=== PATIENT | male | born 1990 | race Caucasian/White ===

== ENCOUNTER 2024-01-17 20:38 | Emergency (ER) | payer MEDICAID ==
[~2024-01-17 20:38] MED LIST: LOSA-382 PO; SERT-158 PO; SERT-439 PO
== END 2024-01-17 21:20 | disposition left against medical advice (07) ==
LOC: EMS 20:38
DX: Z53.21 Procedure and treatment not carried out due to patient leaving prior to being seen by health care provider (principal)

== ENCOUNTER 2024-01-17 21:56 | Emergency (ER) | payer MEDICAID ==
[~2024-01-17] VITALS: Ht 170.2 cm; Wt 65.9 kg
[2024-01-17 22:08] VITALS: BP 135/86; PULSE 84; RESP 18; TEMP 98.6
== END 2024-01-17 22:44 | disposition left against medical advice (07) ==
LOC: EMS 21:56
DX: R45.851 Suicidal ideations (principal); Z53.21 Procedure and treatment not carried out due to patient leaving prior to being seen by health care provider

== ENCOUNTER 2024-01-18 00:33 | Inpatient (IN) | payer MEDICAID ==
[~2024-01-18] VITALS: Ht 172.7 cm; Wt 72.6 kg
[2024-01-18] MEDS ORDERED: ZOLPIDEM TARTRATE 10 MG TABLET PO PRN (03:00)
[2024-01-18] MEDS ORDERED: OLANZapine 5 MG RAPDIS TABLET PO PRN (03:00)
[2024-01-18] MEDS ORDERED: PNEUMOCOCCAL VACCINE POLYVALENT 0.5 ML SYRINGE [PPSV23] IM. ONE (05:15)
[2024-01-18] MEDS ORDERED: LOPERAMIDE HCL 2 MG CAPSULE PO PRN (08:00)
[2024-01-18] MEDS ORDERED: NICOTINE 14 MG/24 HOUR PATCH TD PRN (08:00)
[2024-01-18] MEDS ORDERED: GuaiFENesin/D-METHORPHAN [SUGAR-FREE] 200-20MG/10 ML SYRUP UDCUP PO PRN (08:00)
[2024-01-18] MEDS ORDERED: IBUPROFEN 400 MG TABLET PO PRN (08:00)
[2024-01-18] MEDS ORDERED: MAG HYDROX/ALUMINUM HYD/SIMETH ES 30 ML SUSPENSION UDCUP PO PRN (08:00)
[2024-01-18] MEDS ORDERED: DOCUSATE SODIUM 100 MG CAPSULE PO PRN (08:00)
[2024-01-18] MEDS ORDERED: ONDANSETRON HCL 4 MG TABLET PO PRN (08:00)
[2024-01-18] MEDS ORDERED: MAGNESIUM HYDROXIDE SUSPENSION 30 ML UDCUP PO PRN (08:00)
[2024-01-18] MEDS ORDERED: PETROLATUM,WHITE 28 GM JELLY TP PRN (08:00)
[2024-01-18] MEDS ORDERED: CloNIDine HCL 0.1 MG TABLET PO PRN (08:00)
[2024-01-18] MEDS ORDERED: ALBUTEROL SULFATE HFA 90 MCG/PUFF 8 GM INHALER IH PRN (08:00)
[2024-01-18] MEDS: LOSARTAN POTASSIUM 50 MG TABLET PO SCH (09:00)
[2024-01-18 14:54] VITALS: BP 129/78; PULSE 65; RESP 16; TEMP 98.6; O2SAT 96
[2024-01-18 20:13] VITALS: BP 134/72; PULSE 61; RESP 16; TEMP 97.3; O2SAT 97
[2024-01-19 08:11] VITALS: BP 122/81; PULSE 70; RESP 20; TEMP 98; O2SAT 99
[2024-01-19] MEDS: SERTRALINE HCL 50 MG TABLET PO SCH (09:22)
[2024-01-19 09:41] VITALS: BP 143/92
[2024-01-19 18:13] VITALS: BP 159/91; PULSE 72; RESP 20; O2SAT 97
[2024-01-19] MEDS: ACETAMINOPHEN 325 MG TABLET PO PRN (18:13)
[2024-01-19 19:13] VITALS: RESP 19; O2SAT 97
[2024-01-19 23:05] VITALS: BP 132/84; PULSE 78; RESP 18; TEMP 97.8
[2024-01-20 08:17] LABS: BASOPHILS % (AUTO) 0.5 % (0.0-2.0); EOSINOPHILS % (AUTO) 2.9 % (1.0-6.0); HEMATOCRIT 41.9 % (41-53); HEMOGLOBIN 14.3 g/dL (13.5-17.5); LYMPHOCYTES # (AUTO) 2.5 K/uL (1.0-4.8); LYMPHOCYTES % (AUTO) 39.4 % (22.0-44.0); MEAN CORPUSCULAR HEMOGLOBIN 32.3 pg (26.0-34.0); MEAN CORPUSCULAR HGB CONC 34.1 G/dL (31.0-37.0); MEAN CORPUSCULAR VOLUME 95 fL (80-100); MONOCYTES # (AUTO) 0.6 K/uL (0.1-1.0); NEUTROPHILS # (AUTO) 2.9 K/uL (1.8-7.7); NEUTROPHILS % (AUTO) 47.2 % (40.0-70.0); PLATELET COUNT (AUTO) 183 K/uL (150-450); RED BLOOD CELL COUNT(AUTO) 4.42 MIL/uL (4.50-5.90); RED CELL DISTRIBUTION WIDTH 12.7 % (11.5-14.5); WHITE BLOOD COUNT (AUTO) 6.3 K/uL (4.5-11.0)
[2024-01-20 08:19] LABS: APPEARANCE,URINE TURBID (CLEAR); BILIRUBIN,URINE NEGATIVE (NEGATIVE); COLOR,URINE LIGHT ORANGE (YELLOW); GLUCOSE, URINE (UA) NEGATIVE (NEGATIVE); KETONES,URINE NEGATIVE (NEGATIVE); LEUKOCYTE ESTERASE ,URINE NEGATIVE (NEGATIVE); NITRATE,URINE NEGATIVE (NEGATIVE); OCCULT BLOOD,URINE NEGATIVE (NEGATIVE); PH,URINE 5.5 (5.0-8.0); PH,URINE DRUG SCREEN 5.5 (5.0-8.0); PROTEIN,URINE NEGATIVE (NEGATIVE); SPECIFIC GRAVITIY, URINE 1.025 (1.003-1.030); UROBILINOGEN,URINE <=1.0 mg/dL (<=1.0)
[2024-01-20 08:22] LABS: HEMOGLOBIN A1C 5.1 % (3.8-5.6)
[2024-01-20 08:23] VITALS: BP 142/62; PULSE 56; RESP 18; TEMP 97.5; O2SAT 100
[2024-01-20 08:36] LABS: ALANINE AMINOTRANSFERASE 15 U/L (12-78); ALBUMIN 3.3 g/dL (3.4-5.0); ALKALINE PHOSPHATASE 51 U/L (46-116); ANION GAP 7 mmol/L (8-16); ASPARTATE AMINOTRANSFERASE 14 U/L (15-37); BILIRUBIN,TOTAL 0.7 mg/dL (0.1-1.0); CALCIUM, TOTAL 8.7 mg/dL (8.8-10.5); CARBON DIOXIDE 29 mmol/L (22-29); CHLORIDE 102 mmol/L (98-107); CHOLESTEROL 146 mg/dL (131-200); CREATININE 0.88 mg/dL (0.60-1.30); FREE T4 (FREE THYROXINE) 0.98 ng/dL (0.76-1.46); GLOMERULAR FILTR. RATE CALC > 60 mL/min (>60); GLUCOSE,RANDOM 74 mg/dL (70-110); HDL CHOLESTEROL 49 mg/dL (40-60); LDL CHOL (CALC.) 92 mg/dL (0-130); POTASSIUM 3.6 mmol/L (3.5-5.1); SODIUM SERUM 138 mmol/L (136-145); THYROID STIMULATING HORMONE 0.88 uIU/mL (0.36-3.74); TRIGLYCERIDES 26 mg/dL (15-150); UREA NITROGEN, BLOOD 11 mg/dL (7-18)
[2024-01-20 08:36] LABS: ALCOHOL, URINE DRUG SCREEN NEGATIVE (NEGATIVE); AMPHET/METH SCREEN,URINE NEGATIVE (NEGATIVE); BARBITURATE SCREEN, URINE NEGATIVE (NEGATIVE); BENZODIAZEPINES SCREEN,URINE NEGATIVE (NEGATIVE); CANNABINOID SCREEN,URINE NEGATIVE (NEGATIVE); COCAINE SCREEN,URINE NEGATIVE (NEGATIVE); METHADONE SCREEN, URINE NEGATIVE (NEGATIVE); OPIATE SCREEN,URINE NEGATIVE (NEGATIVE); PHENCYCLIDINE SCREEN,URINE NEGATIVE (NEGATIVE)
[2024-01-20 20:23] VITALS: BP 114/59; PULSE 61; RESP 17; TEMP 97.9; O2SAT 100
[2024-01-21 08:15] VITALS: BP 104/62; PULSE 64; RESP 17; TEMP 97.5; O2SAT 98
[2024-01-21 20:32] VITALS: BP 109/57; PULSE 60; RESP 16; TEMP 97.9; O2SAT 97
[2024-01-21] MEDS: ChlorproMAZINE HCL 50 MG/2 ML AMP IM ONE (21:30)
[2024-01-21] MEDS: DiphenhydrAMINE HCL 50 MG/ML VIAL IM ONE (21:30)
[2024-01-21] MEDS ORDERED: ChlorproMAZINE HCL 50 MG/2 ML AMP ONE (21:31)
[2024-01-22 08:45] VITALS: RESP 17
[2024-01-22 09:14] LABS: TROPONIN I-HIGH SENSITIVITY 33 ng/L (<76)
[2024-01-22 20:26] VITALS: BP 129/80; PULSE 77; RESP 18; TEMP 97.8; O2SAT 97
[2024-01-23 08:26] VITALS: BP 114/66; PULSE 61; RESP 17; TEMP 97.7; O2SAT 100
== END 2024-01-23 15:29 | disposition home or self-care (01) | DRG 751 ==
LOC: B3A 02:38 → B2S 12:40 → B3A 01-19 19:00
PROVIDERS: ADMIT Psychiatry & Neurology Psychiatry; ATTEND Psychiatry & Neurology Psychiatry
PROC: GZHZZZZ Group Psychotherapy (ICD-10-PCS; principal; 2024-01-19)
DX: F33.2 Major depressive disorder, recurrent severe without psychotic features (principal); R45.851 Suicidal ideations; G47.00 Insomnia, unspecified; G89.4 Chronic pain syndrome; I10 Essential (primary) hypertension; Z79.899 Other long term (current) drug therapy; Z59.00 Homelessness unspecified; Z91.018 Allergy to other foods
CPT/HCPCS: 80053; 80061; 80307; 81003; 83036; 84439; 84443; 84484; 85025; 87081; J1200; J3230

== ENCOUNTER 2024-01-18 03:19 | Emergency (ER) | payer MEDICAID ==
[~2024-01-18] VITALS: Ht 177.8 cm; Wt 81.0 kg
[2024-01-18 03:53] LABS: BASOPHILS % (AUTO) 0.5 % (0.0-2.0); EOSINOPHILS % (AUTO) 1.5 % (1.0-6.0); HEMATOCRIT 42.7 % (41-53); HEMOGLOBIN 14.5 g/dL (13.5-17.5); LYMPHOCYTES # (AUTO) 3.1 K/uL (1.0-4.8); LYMPHOCYTES % (AUTO) 38.8 % (22.0-44.0); MEAN CORPUSCULAR HEMOGLOBIN 32.1 pg (26.0-34.0); MEAN CORPUSCULAR VOLUME 94 fL (80-100); MONOCYTES # (AUTO) 0.8 K/uL (0.1-1.0); MONOCYTES % (AUTO) 10.4 % (2.0-9.0); NEUTROPHILS # (AUTO) 3.9 K/uL (1.8-7.7); NEUTROPHILS % (AUTO) 48.8 % (40.0-70.0); PLATELET COUNT (AUTO) 193 K/uL (150-450); RED BLOOD CELL COUNT(AUTO) 4.53 MIL/uL (4.50-5.90); RED CELL DISTRIBUTION WIDTH 12.8 % (11.5-14.5)
[2024-01-18 04:01] LABS: ANION GAP 3 mmol/L (8-16); CALCIUM, TOTAL 8.6 mg/dL (8.8-10.5); CARBON DIOXIDE 33 mmol/L (22-29); CHLORIDE 103 mmol/L (98-107); CREATININE 0.99 mg/dL (0.60-1.30); GLOMERULAR FILTR. RATE CALC > 60 mL/min (>60); GLUCOSE,RANDOM 98 mg/dL (70-110); POTASSIUM 3.8 mmol/L (3.5-5.1); SODIUM SERUM 139 mmol/L (136-145); UREA NITROGEN, BLOOD 16 mg/dL (7-18)
[2024-01-18 04:06] LABS: ALCOHOL, BLOOD (SERUM) < 3 mg/dL (0-10)
[2024-01-18] MEDS: BACITRACIN 0.9 GM PACKET OINTMENT TP ONE (04:30)
[2024-01-18] MEDS: PERTUSS(ACELL),DIPH,TET/PF 0.5 ML SYRINGE [ADULT] IM. ONE (04:31)
[2024-01-18 04:38] LABS: COVID AG,FIA SOURCE NASAL SWAB
[2024-01-18 04:49] LABS: SARS-COV2 (COVID) ANTIGEN,FIA Negative (Negative)
[2024-01-18 09:00] VITALS: BP 122/79; PULSE 77; RESP 18; TEMP 98.4
== END 2024-01-18 10:52 | disposition home or self-care (01) ==
LOC: EMS 03:27
DX: F32.9 Major depressive disorder, single episode, unspecified (principal); Z88.8 Allergy status to other drugs, medicaments and biological substances; Z20.822 Contact with and (suspected) exposure to COVID-19
CPT/HCPCS: 99285; 87426; 80048; 85025; 36415; 90715; 90471; G0480

== ENCOUNTER 2024-05-27 17:08 | Emergency (ER) | payer MEDICAID, OTHER ==
[~2024-05-27] VITALS: Ht 172.7 cm; Wt 72.7 kg
[~2024-05-27 17:08] MED LIST changes: -SERT-439 PO
[2024-05-27 17:22] VITALS: TEMP 98.5
[2024-05-27] MEDS ORDERED: LISI10TA24 PO (17:42)
[2024-05-27] MEDS: ONDANSETRON HCL 4 MG/2 ML VIAL IVP ONE (18:04)
[2024-05-27] MEDS: SODIUM CHLORIDE 0.9% 1,000 ML IV ONE (18:04)
[2024-05-27 18:14] LABS: COVID AG,FIA SOURCE NASAL SWAB
[2024-05-27 18:28] LABS: ANION GAP 7 mmol/L (8-16); CALCIUM, TOTAL 7.7 mg/dL (8.8-10.5); CARBON DIOXIDE 29 mmol/L (22-29); CHLORIDE 101 mmol/L (98-107); CREATININE 0.94 mg/dL (0.60-1.30); GLOMERULAR FILTR. RATE CALC > 60 mL/min (>60); GLUCOSE,RANDOM 84 mg/dL (70-110); POTASSIUM 3.7 mmol/L (3.5-5.1); SODIUM SERUM 137 mmol/L (136-145); UREA NITROGEN, BLOOD 12 mg/dL (7-18)
[2024-05-27 18:33] LABS: ALANINE AMINOTRANSFERASE 19 U/L (12-78); ALBUMIN 3.1 g/dL (3.4-5.0); ALKALINE PHOSPHATASE 44 U/L (46-116); ASPARTATE AMINOTRANSFERASE 25 U/L (15-37); BILIRUBIN,TOTAL 0.4 mg/dL (0.1-1.0); LIPASE 64 U/L (16-77); TOTAL PROTEIN, SERUM 6.4 g/dL (6.4-8.2)
[2024-05-27 18:35] LABS: INFLUENZA TYPE B NEGATIVE FOR TYPE B (NEGATIVE); SARS-COV2 (COVID) ANTIGEN,FIA Negative (Negative)
[2024-05-27 18:36] LABS: BASOPHILS % (AUTO) 0.4 % (0.0-2.0); EOSINOPHILS % (AUTO) 0 % (1.0-6.0); HEMATOCRIT 38.2 % (41-53); HEMOGLOBIN 13.3 g/dL (13.5-17.5); LYMPHOCYTES # (AUTO) 0.9 K/uL (1.0-4.8); LYMPHOCYTES % (AUTO) 18.8 % (22.0-44.0); MEAN CORPUSCULAR HEMOGLOBIN 32.1 pg (26.0-34.0); MEAN CORPUSCULAR HGB CONC 34.7 G/dL (31.0-37.0); MEAN CORPUSCULAR VOLUME 92 fL (80-100); MONOCYTES # (AUTO) 0.4 K/uL (0.1-1.0); MONOCYTES % (AUTO) 9.8 % (2.0-9.0); NEUTROPHILS # (AUTO) 3.2 K/uL (1.8-7.7); PLATELET COUNT (AUTO) 155 K/uL (150-450); RED BLOOD CELL COUNT(AUTO) 4.14 MIL/uL (4.50-5.90); RED CELL DISTRIBUTION WIDTH 12.8 % (11.5-14.5); WHITE BLOOD COUNT (AUTO) 4.6 K/uL (4.5-11.0)
[2024-05-27 18:46] LABS: INFLUENZA TYPE A POSITIVE FOR TYPE A (NEGATIVE)
[2024-05-27 19:18] VITALS: BP 122/70; PULSE 80; RESP 16; O2SAT 98
[2024-05-27] MEDS ORDERED: ONDA-104 PO (19:25)
== END 2024-05-27 19:49 | disposition home or self-care (01) ==
LOC: EMS 17:08
DX: J10.1 Influenza due to other identified influenza virus with other respiratory manifestations (principal); R11.2 Nausea with vomiting, unspecified; I10 Essential (primary) hypertension; Z88.8 Allergy status to other drugs, medicaments and biological substances; Z79.899 Other long term (current) drug therapy; Z20.822 Contact with and (suspected) exposure to COVID-19
CPT/HCPCS: 99285; 96374; 71045; 96361; 87426; 80048; 80076; 83690; 85025; 87804; 36415; 93005; J2405; J7030